=== PATIENT | female | born 2005 | race African-American/Black ===

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

== ENCOUNTER 2024-01-18 13:04 | Emergency (ER) | payer MEDICAID, SELFPAY ==
[2024-01-18 13:08] VITALS: BP 125/77; PULSE 92; RESP 16; TEMP 36.9; O2SAT 99; BMI 21.4
--- NOTE | 2024-01-18 13:29 | ED_ITS ---
HPI - Nausea/Vomiting/Diarrhea 2 General: Chief complaint: Nausea/Vomiting/Diarrhea Stated complaint: vomiting Time Seen by Provider: 01/18/24 13:06 Source: patient Mode of arrival: ambulatory History of Present Illness: 18-year-old female presents emergency ro om with complaints of nausea and vomiting. She states she ate some crawfish 2 days ago that seem to precipitate it. She was seen in urgent care in [place] given IV fluids states she still feels weak has been nauseous and continuing to vomit at times. She reports a fever this morning she denies any dysuria urgency or frequency. No hematochezia melena hematemesis or coffee-ground emesis. MD elicited complaint: nausea and vomiting Onset (ago): day(s) Associated nausea: Yes Associated abdominal pain: Yes Location of pain: Diffuse Severity: mild Quality: cramping Exacerbating factors: none Relieving factors: none Associated symtoms: Reports nausea; Denies altered mental status, anxiety, bloating, change in vision, chest pain, cough, diaphoresis, decreased urine output, dizziness, dysuria, epistaxis, fatigue, fecal incontinence, fevers/chills, headache(s), anorexia, malaise, myalgias, numbness, palpitations, rash, short of breath, syncope, tenesmus, tinnitus or weakness Review of Systems 2 Const: Denies: fatigue, malaise or diaphoresis Eyes: Denies: change in vision ENMT: Denies: tinnitus or epistaxis Card: Denies: chest pain, palpitations or syncope Resp: Denies: dyspnea GI: Reports: nausea; Denies: bloating or fecal incontinence : Denies: dysuria Musc: Denies: neck pain or back pain Skin/Breast: Denies: rash Neuro: Denies: headache(s) or dizziness Psych: Denies: anxiety PFSH ED 2 PFSH: Family History Denies family history of Colon cancer Ovarian cancer Prostate cancer Diabetes Heart disease Hypercholesteremia Breast cancer Hypertension Uterine cancer Thyroid disease Stroke Physical Exam 2 Const: COMMON NORMALS: no acute distress EXAM LIMITATIONS: no altered mental status GENERAL APPEARANCE: cooperative and comfortable O RIENTATION/CONSCIOUSNESS: Yes awake, Yes oriented to person, Yes oriented to place and Yes oriented to time HENMT: COMMON NORMALS: normocephalic, atraumatic and hearing grossly normal bilaterally HEAD & SCALP: normocephalic and atraumatic Resp: COMMON NORMALS: normal respiratory effort, No retractions, No use of accessory muscles and clear to auscultation bilaterally AUSCULTATION: clear to auscultation bilaterally Cardio: COMMON NORMALS: regular rate, regular rhythm and No murmurs present (Cardio) RATE: regular rate RHYTHM: regular rhythm GI: COMMON NORMALS: Soft to palpation and No hepatosplenomegaly present A USCULTATION: Yes normoactive bowel sounds PALPATION: Yes Soft to palpation, No Tenderness to palpation present (GI), No Guarding due to palpation present (GI) and Yes No hepatosplenomegaly present Extremity: COMMON NORMALS: normal to inspection, capillary refill normal, no clubbing, cyanosis or edema, no calf tenderness and no pedal edema Neuro: SENSORIUM/ORIENTATION: Yes oriented to person, Yes oriented to place and Yes oriented to time Skin: COMMON NORMALS: no rashes or lesions noted GENERAL SKIN EXAM: no rashes or lesions noted Course 2 Vital Signs: Vital signs: Vital Signs Temperature 98.5 F 01/18/24 13:08 Pulse Rate 81 01/18/24 14:15 Respiratory Rate 18 01/18/24 13:41 Blood Pressure 121/70 01/18/24 14:15 Pulse Oximetry 99 01/18/24 14:15 Oxygen Delivery Me thod Room Air 01/18/24 14:15 MDM - Nausea/Vomiting/Diarrhea Medical Decision Making Labs and imaging reviewed T. bili and lipase are elevated although suspect this is more related to volume depletion. CT did not show significant inflammation about the pancreas. Patient was given 2 L of fluids she did she does admit to regular use of THC products I think this is complicating her course. She is improved with the fluids and antiemetics discharged home clear liquid diet promethazine as needed follow-up with primary care Medical Records I reviewed the patient's medical records. Lab Data I reviewed the patient's lab results. 01/18/24 13:37 01/18/24 13:37 Radiology Impressions Abdomen/Pelvis CT 01/18/24 13:46 IMPRESSION: No definite pathology. Limited assessment of the colonic wall secondary to nondistention; mild colonic wall thickening cannot be excluded in this setting. Clinical correlation recommended. Laboratory Results WBC 12.28 10^3/uL (4.5-13.0) 01/18/24 13:37 RBC 4.74 10^6/uL (3.85-5.65) 01/18/24 13:37 Hgb 12.80 g/dL (12.4-14.8) 01/18/24 13:37 Hct 39.2 % (36-47) 01/18/24 13:37 MCV 82.7 fl (85-98) L 01/18/24 13:37 MCH 27.0 pg (27-33) 01/18/24 13:37 MCHC 32.7 g/dL (30-55) 01/18/24 13:37 RDW 13.8 % (12.1-15.1) 01/18/24 13:37 Plt Count 284 10^3/cmm (157-399) 01/18/24 13:37 MPV 10.6 fL (7.4-10.4) H 01/18/24 13:37 Neut % (Auto) 78.3 % 01/18/24 13:37 Lymph % (Auto) 14.3 % 01/18/24 13:37 [place] % (Auto) 6.8 % 01/18/24 13:37 Eos % (Auto) 0.0 % 01/18/24 13:37 Baso % (Auto) 0.2 % 01/18/24 13:37 Neut # (Auto) 9.62 10^3/uL (1.8-8.0) H 01/18/24 13:37 Lymph # (Auto) 1.8 10^3/uL (1.5-6.5) 01/18/24 13:37 [place] # (Auto) 0.8 10^3/uL (0.2-0.9) 01/18/24 13:37 Eos # (Auto) 0.0 10^3/uL (0.0-0.8) 01/18/24 13:37 Baso # (Auto) 0.0 10^3/uL (0.0-0.1) 01/18/24 13:37 Nucleated RBC % (auto) 0 % 01/18/24 13:37 Nucleated RBCs # 0.0 /100WBC 01/18/24 13:37 Sodium 137 mmol/L (136-145) 01/18/24 13:37 Potassium 3.6 mmol/L (3.5-5.1) 01/18/24 13:37 Chloride 102 mmol/L (98-107) 01/18/24 13:37 Carbon Dioxide 22 mmol/L (22-29) 01/18/24 13:37 Anion Gap 16.6 (5-19) 01/18/24 13:37 BUN 9 mg/dL (6-20) 01/18/24 13:37 Creatinine 0.6 mg/dL (0.5-0.9) 01/18/24 13:37 GFR Calculation 155.8 mL/min (90-130) H 01/18/24 13:37 Glucose 114 mg/dL (65-115) 01/18/24 13:37 Calculated Osmolality 284 mOsm/kg (285-295) L 01/18/24 13:37 Calcium 9.1 mg/dL (8.5-10.5) 01/18/24 13:37 Total Bilirubin 1.3 mg/dL (0.15-1.2) H 01/18/24 13:37 AST 16 U/L (0-32) 01/18/24 13:37 ALT 15 U/L (0-33) 01/18/24 13:37 Alkaline Phosphatase 56 U/L (35-105) 01/18/24 13:37 Total Protein 7.7 g/dL (6.6-8.7) 01/18/24 13:37 Albumin 4.6 g/dL (3.5-5.2) 01/18/24 13:37 Globulin 3.1 g/dL (1.3-4.6) 01/18/24 13:37 Lipase 93 U/L (13-60) H 01/18/24 13:37 Ser , Semi-Qnt < 1.00 mIU/mL 01/18/24 13:37 Urine Color Yellow (Yellow) 01/18/24 14:44 Urine Appearance Hazy (CLEAR) A 01/18/24 14:44 Urine pH 8 (5-7) H 01/18/24 14:44 Ur Specific [place] 1.010 (1.005-1.030) 01/18/24 14:44 Urine Protein Trace (Negative) 01/18/24 14:44 Urine Glucose (UA) 1+ (Normal) H 01/18/24 14:44 Urine Ketones 2+ (Negative) H 01/18/24 14:44 Urine Blood Neg (Negative) 01/18/24 14:44 Urine Nitrate Negative (Negative) 01/18/24 14:44 Urine Bilirubin Neg (Negative) 01/18/24 14:44 Prot Sulfosalicylic Acd Negative (Negative) 01/18/24 14:44 Urine Urobilinogen 4 mg/dL (Negative) H 01/18/24 14:44 Ur Leukocyte Esterase Trace (Negative) H 01/18/24 14:44 Urine RBC 0-4 /hpf (0-2) H 01/18/24 14:44 Urine WBC 0-4 /hpf (0-5) H 01/18/24 14:44 Ur Squamous Epith Cells 15-25 /hpf (0-5) H 01/18/24 14:44 Amorphous Sediment Not Reportable 01/18/24 14:44 Urine Bacteria 1+ /hpf (NONE) H 01/18/24 14:44 Urine Mucus 2+ /hpf 01/18/24 14:44 All radiology interpretation(s) finalized by discharge Discharge Plan Discharge Patient Disposition: Home Clinical Impression: Enteritis Condition: Stable Prescriptions: New promethazine 25 mg tablet 25 mg PO Q6H PRN (Reason: nausea and vomiting) Qty: 20 0RF No Action etonogestrel-ethinyl estradiol [NuvaRing] 0.12-0.015 mg/24 hr ring 1 vag ring vaginal ONCE Qty: 3 4RF Rx Instructions: Place 1 vaginal ring into the vaginal canal once a month. acetaminophen 325 mg capsule 325 mg PO Q4H PRN (Reason: fever or pain) Qty: 60 0RF Discharge Orders: Discharge ED (Routine); Ordered 01/18/24 Ordered By: Leoncio Vasquez Discharge Diet: Clear Liquid Discharge Activity: Increase activity as tolerated Patient Instructions: Opioid Safety, Pain Management Activity Restrictions/Additional Instructions: Thank you for choosing [facility] for your healthcare needs today. Please realize this is an emergency room and that we are providing you with a medical screening exam and this may not be complete and all inclusive of all the testing and or work up that you may need to determine your ailment or severity of your illness. It is very important that you follow up as instructed or that you return to the Emergency Department should you have concerns or if your condition changes or worsens in any way. You are seen today with complaints abdominal pain with persistent nausea and vomiting. CT did not show any acute pathology laboratory studies showed some mild nonspecific variations from normal but nothing that was clinically significant. Your bilirubin and lipase were elevated I suspect these are due to volume depletion. Urine showed some contamination no clear signs of infection. Some of your symptoms may be due to enteritis they may also be due to use of THC products. Recommend clear liquid diet for the next 48 hours avoid the use of THC products you can use promethazine as needed for nausea or vomiting follow-up with your primary care doctor if not improving Coding Level of Care Code ED Rehabilitation Counselor for Erin Reyes
[2024-01-18] MEDS: ondansetron 2 mg/ML SDV 2 mL 4 MG IVP (13:32)
[2024-01-18] MEDS: sodium chloride 0.9% 1,000 ML 999 ML IV ×2 (13:35→15:46)
[2024-01-18 13:41] VITALS: BP 121/70; PULSE 80; RESP 18; O2SAT 99
[2024-01-18 13:46] LABS: Basophils % 0.2 %; Hematocrit 39.2 % (36-47); Lymphocytes # 1.8 10^3/uL (1.5-6.5); Lymphocytes % 14.3 %; Mean Corpuscular HGB Conc 32.7 g/dL (30-55); Mean Corpuscular Volume 82.7 fl (85-98); Mean Platelet Volume 10.6 fL (7.4-10.4); Monocytes # 0.8 10^3/uL (0.2-0.9); Monocytes % 6.8 %; Neutrophils # 9.62 10^3/uL (1.8-8.0); Neutrophils % 78.3 %; Nucleated Red Blood Cells % 0 %; Platelet Count 284 10^3/cmm (157-399); Red Blood Count 4.74 10^6/uL (3.85-5.65); Red Cell Distribution Width 13.8 % (12.1-15.1); White Blood Count 12.28 10^3/uL (4.5-13.0)
--- NOTE | 2024-01-18 13:46 | CTR_ITS ---
PROCEDURE INFORMATION: Exam: CT Abdomen And Pelvis With Contrast Exam date and time: 01/18/2024 2:38 PM Age: 18 years old Clinical indication: Pain; Other: N/v/d; Patient HX: Nvd since Wednesday after eating crawfish; Additional info: Abd pain TECHNIQUE: Imaging protocol: Computed tomography of the abdomen and pelvis with contrast. Radiation optimization: All CT scans at this facility use at least one of these dose optimization techniques: automated exposure control; mA and/or kV adjustment per patient size (includes targeted exams where dose is matched to clinical indication); or iterative reconstruction. Contrast material: OMNI 350; Contrast volume: 100 ml; Contrast route: INTRAVENOUS (IV); COMPARISON: No relevant prior studies available. RADIATION DOSE METRICS: Total DLP (mGy-cm): 341.21 FINDINGS: Lungs: No significant pathology at the imaged lung bases. Liver: No significant liver pathology. Gallbladder and bile ducts: No significant gallbladder pathology. No biliary dilatation. Pancreas: No significant pancreatic pathology. Spleen: No significant splenic pathology. Adrenal glands: No significant adrenal pathology. Kidneys and ureters: No significant renal pathology. Stomach and bowel: Colon is nondistended limiting assessment of the wall. Mild wall thickening of the colon cannot be excluded. Appendix: Appendix within normal limits. Intraperitoneal space: No ascites. Vasculature: No abdominal aortic aneurysm. Lymph nodes: No evidence of lymphadenopathy. Urinary bladder: Urinary bladder is nondistended limiting assessment of the wall. Reproductive: No significant uterine pathology. No significant adnexal pathology. Bones/joints: No significant bony pathology. Soft tissues: Unremarkable. CT/CT abdomen pelvis w con* [id number] IMPRESSION: No definite pathology. Limited assessment of the colonic wall secondary to nondistention; mild colonic wall thickening cannot be excluded in this setting. Clinical correlation recommended.
[2024-01-18 14:15] VITALS: BP 121/70; PULSE 81; O2SAT 99
[2024-01-18 14:18] LABS: HCG Quantitative < 1.00 mIU/mL
[2024-01-18 14:28] LABS: Alanine Aminotransferase 15 U/L (0-33); Albumin Level 4.6 g/dL (3.5-5.2); Alkaline Phosphatase 56 U/L (35-105); Anion Gap 16.6 (5-19); Aspartate Amino Transferase 16 U/L (0-32); Blood Urea Nitrogen 9 mg/dL (6-20); Calcium 9.1 mg/dL (8.5-10.5); Carbon Dioxide 22 mmol/L (22-29); Chloride 102 mmol/L (98-107); Creatinine Clr Calc Pharmacy 132.1327; Globulin 3.1 g/dL (1.3-4.6); Glomerular Filtration Rate 155.8 mL/min (90-130); Glucose 114 mg/dL (65-115); Osmolality Calculated 284 mOsm/kg (285-295); Potassium 3.6 mmol/L (3.5-5.1); Sodium 137 mmol/L (136-145); Total Bilirubin 1.3 mg/dL (0.15-1.2); Total Protein 7.7 g/dL (6.6-8.7)
[2024-01-18 14:30] LABS: Lipase 93 U/L (13-60)
[2024-01-18] MEDS: iohexol 350 mg/mL 500 mL Btl (per mL) IV (14:42)
[2024-01-18 15:11] LABS: Urine Appearance Hazy (CLEAR); Urine Color Yellow (Yellow); pH Urine 8 (5-7)
[2024-01-18 15:12] LABS: Add Urine Microscopic? YES; Bilirubin Urine Neg (Negative); Blood Urine Neg (Negative); Glucose Urine UA 1+ (Normal); Ketones Urine 2+ (Negative); Leukocyte Esterase Urine Trace (Negative); Nitrate Urine Negative (Negative); Protein Urine Trace (Negative); Urobilinogen Urine 4 mg/dL (Negative)
[2024-01-18 15:32] LABS: Add Urine Culture? No; Bacteria Urine 1+ /hpf; Mucus Urine 2+ /hpf; RBC Urine 0-4 /hpf (0-2); Squamous Epithelial Cell Urine 15-25 /hpf (0-5); Sulfosalicylic Acid Urine Negative (Negative); WBC Urine 0-4 /hpf (0-5)
[2024-01-18 17:27] VITALS: BP 121/70; PULSE 81; RESP 18; TEMP 36.9; O2SAT 99
== END 2024-01-18 17:28 | disposition home or self-care (01) ==
PROVIDERS: Physician Assistant; Emergency Provider Family Medicine
DX: K52.9 Noninfective gastroenteritis and colitis, unspecified (principal)
CPT/HCPCS: 74177; 80053; 81001; 83690; 84702; 85025; 96361; 96374; 99285; J2405; J7030; Q9967

== ENCOUNTER 2024-03-20 11:47 | Emergency (ER) | payer MEDICAID, SELFPAY ==
[2024-03-20 11:57] VITALS: BP 155/96; PULSE 81; RESP 18; TEMP 36.9; O2SAT 100; BMI 22.1
--- NOTE | 2024-03-20 13:50 | W.ED.SKABFB ---
HPI - Skin/Abscess/Foreign Bdy General: Chief complaint: Skin/Abscess/Foreign Body Stated complaint: possible bug bite, one on arm one on vaginal regio Time Seen by Provider: 03/20/24 13:49 Source: patient Mode of arrival: ambulatory Limitations: no limitations History of Present Illness: Patient is a 18-year-old female presents to ED today with complaint of a possible insect bite to her left arm and another complaint of gland swelling near her labia. Symptoms began approximately 3 days or so ago. She is describing both areas as painful. No systemic symptoms. MD complaint: insect bite/sting and abscess/boil Onset (ago): day(s) Tetanus up to date: yes Location: LUE and genitals Severity: moderate Pain Consistency: constant Relieving factors: none Exacerbating factors: none Context: none Associated symptoms: Reports no associated symptoms; Deny chills, fever(s) or nausea Treatments prior to arrival: attempted to drain pus at home Review of Systems Const: Denies: fever(s), chills, body aches, fatigue or malaise Card: Denies: chest pain Resp: Denies: dyspnea GI: Denies: abdominal pain, nausea or diarrhea Musc: Denies: neck pain, back pain, extremity pain or joint pain Skin/Breast: Reports: erythema, sores and new lesions Neuro: Denies: headache(s), numbness in extremities, weakness in extremities, sensory changes or dizziness PFS ED PFSH: Family History Denies family history of Colon cancer Ovarian cancer Prostate cancer Diabetes Heart disease Hypercholesteremia Breast cancer Hypertension Uterine cancer Thyroid disease Stroke Physical Exam Const: COMMON NORMALS: no acute distress, average body habitus, patient oriented x3, no limitations, healthy appearing, alert and well nourished : EXTERNAL FEMALE EXAM: Yes other (small pea sized Bartholin's cyst vs abscess) Extremity: COMMON NORMALS: full ROM and capillary refill normal GENERAL: Yes normal exam except as noted EXTREMITY IMAGE (BACK): 1. small bite like lesion/vesicle with mild surrounding erythema consistent with bite/sting Neuro: COMMON NORMALS: patient oriented x3 SENSORIUM/ORIENTATION: Yes alert Skin: NARRATIVE SKIN EXAM: see above Course Vital Signs: Vital signs: Vital Signs Temperature 98.6 F 03/20/24 13:52 Pulse Rate 77 03/20/24 13:52 Respiratory Rate 16 03/20/24 13:52 Blood Pressure 105/66 03/20/24 13:52 Pulse Oximetry 99 03/20/24 13:52 Oxygen Delivery Me thod Room Air 03/20/24 13:52 MDM - Skin/Abscess/Foreign Bdy Medicial Decision Making Patient here for bite/sting to her left arm as well as a small Bartholin cyst vs abscess. Lesion at this time is very small. She is very hesitant and skittish about visualization/inspection/palpation and admittedly does not want incision and drainage performed today. I think based on the size it is reasonable to trial antibiotics. Will place her on Bactrim with strict precautions that if area continues to enlarge or become more painful she will need medical re-evaluation for possible drainage. Medical Records I reviewed the patient's medical records. Lab Data I reviewed the patient's lab results. No radiology studies performed this visit Discharge Plan Discharge Patient Disposition: Home Clinical Impression: Bartholin's gland abscess, Insect bite or sting Condition: Stable Prescriptions: New Bactrim DS 800-160 mg tablet 1 tab PO BID 7 Days Qty: 14 0RF No Action etonogestrel-ethinyl estradiol [NuvaRing] 0.12-0.015 mg/24 hr ring 1 vag ring vaginal ONCE Qty: 3 4RF Rx Instructions: Place 1 vaginal ring into the vaginal canal once a month. promethazine 25 mg tablet 25 mg PO Q6H PRN (Reason: nausea and vomiting) Qty: 20 0RF acetaminophen 325 mg capsule 325 mg PO Q4H PRN (Reason: fever or pain) Qty: 60 0RF Discharge Orders: Discharge ED (Routine); Ordered 03/20/24 Ordered By: Brenda Rincon Referrals: Allyn Kohli, [Primary Care Provider] - Activity Restrictions/Additional Instructions: As we discussed please fill your antibiotics and start them immediately. You need to do warm compresses/sitz baths multiple times daily to help. As we discussed if lesion continues to enlarge or becomes increasingly painful you need to return to the emergency department or follow-up with primary care. Coding Level of Care Code ED Tool Turret Lathe Set Up Operator for Erin Reyes
[2024-03-20 13:52] VITALS: BP 105/66; PULSE 77; RESP 16; TEMP 37; O2SAT 99
== END 2024-03-20 15:45 | disposition home or self-care (01) ==
PROVIDERS: Emergency Provider Physician Assistant; PCP Family Medicine
DX: N75.1 Abscess of Bartholin's gland (principal); S50.361A Insect bite (nonvenomous) of right elbow, initial encounter; W57.XXXA Bitten or stung by nonvenomous insect and other nonvenomous arthropods, initial encounter
CPT/HCPCS: 99283

== ENCOUNTER 2024-03-21 20:54 | Emergency (ER) | payer MEDICAID, SELFPAY ==
[2024-03-21 20:59] VITALS: BP 163/88; PULSE 102; RESP 16; TEMP 36.7; O2SAT 98
[2024-03-21] MEDS: ondansetron 2 mg/ML SDV 2 mL 4 MG IM (21:36)
[2024-03-21] MEDS: sodium chloride 0.9% 1,000 ML 999 ML IV (21:54)
[2024-03-21] MEDS: metoclopramide 5 mg/mL SDV 2 mL 10 MG IVP (21:57)
--- NOTE | 2024-03-21 21:57 | ED_ITS ---
HPI - Nausea/Vomiting/Diarrhea 2 General: Chief complaint: Nausea/Vomiting/Diarrhea Stated complaint: n/v new medicine Time Seen by Provider: 03/21/24 21:03 Source: patient Mode of arrival: ambulatory Limitations: no limitations History of Present Illness: Patient is a 18-year-old female who presents to the emergency department complaining of nausea and vomiting after starting Bactrim couple days ago for Bartholin gland cyst. She notes multiple episodes of vomiting, denies any blood. Denies any diarrhea or other bowel changes. She also states that she smokes marijuana regularly, and has been seen in the emergency department for hyperemesis cannabinoid syndrome. States that she is continue to smoke marijuana regularly. She is noting some diffuse crampy abdominal pain. No fever, chills, or any other symptoms reported this time. MD elicited complaint: nausea, vomiting and abdominal pain Onset (ago): day(s) Associated nausea: Yes Associated abdominal pain: Yes Location of pain: Diffuse Pain consistency: constant Quality: cramping Context: recent antibiotic use and marijuana use Associated symtoms: Reports nausea; Denies chest pain, diaphoresis, dizziness, dysuria, headache(s) or palpitations Review of Systems 2 General: Reports: 10 or more systems reviewed and unremarkable except in HPI and below Const: Denies: fever(s), chills, change in appetite, change in weight or diaphoresis ENMT: Denies: throat pain or hoarseness Card: Denies: chest pain, palpitations or lightheadedness Resp: Denies: dyspnea, productive cough or wheezing GI: Reports: abdominal pain, nausea, vomiting and GI cramping; Denies: diarrhea : Denies: flank pain, difficulty voiding, dysuria, urinary frequency or urinary urgency Musc: Denies: neck pain or back pain Skin/Breast: Denies: rash or new lesions Neuro: Denies: headache(s) or dizziness PFSH ED 2 PFSH: Family History Denies family history of Colon cancer Ovarian cancer Prostate cancer Diabetes Heart disease Hypercholesteremia Breast cancer Hypertension Uterine cancer Thyroid disease Stroke Physical Exam 2 Const: COMMON NORMALS: average body habitus, patient oriented x3, no limitations, healthy appearing, alert and well nourished GENERAL APPEARANCE: cooperative, in distress (Doubled over in pain) and anxious O RIENTATION/CONSCIOUSNESS: Yes awake HENMT: COMMON NORMALS: normocephalic, atraumatic, hearing grossly normal bilaterally, external ears normal, Normal external nose present, Normal nasal mucous membranes and turbinates present and moist oral mucous membranes HEAD & SCALP: normocephalic and atraumatic NOSE: Normal external nose present and Normal nasal mucous membranes and turbinates present EXTERNAL EAR: Yes external ears normal Eye: COMMON NORMALS: Equal, round and reactive pupils present, EOMs intact bilaterally, conjunctivae normal and normal visual rogers by confrontation C ONJUNCTIVA: Yes conjunctivae normal PUPIL: Yes Equal, round and reactive pupils present Neck/C-Spine: COMMON NORMALS: full ROM, supple, no meningeal signs and no JVD Resp: COMMON NORMALS: normal respiratory effort, No retractions, No use of accessory muscles and clear to auscultation bilaterally AUSCULTATION: clear to auscultation bilaterally, no crackles, no rales, no rhonchi and no wheezes Cardio: COMMON NORMALS: no JVD, regular rate, regular rhythm, S1 normal heart sound present, S2 normal heart sound present, No gallops present (Cardio), No clicks present (Cardio), No murmurs present (Cardio), No rub (Cardio) and Peripheral pulses 2+ throughout RATE: regular rate RHYTHM: regular rhythm HEART SOUNDS: S1 normal heart sound present and S2 normal heart sound present PERIPHERAL PULSES: Peripheral pulses 2+ throughout GI: COMMON NORMALS: Normal to inspection, nondistended, normoactive bowel sounds present, Soft to palpation, No hepatosplenomegaly present and no masses AUSCULTATION: Yes normoactive bowel sounds PALPATION: Yes Soft to palpation, Yes Tenderness to palpation present (GI) (Mild diffuse abdominal tenderness to palpation), No Guarding due to palpation present (GI), No Rigid due to palpation and Yes No hepatosplenomegaly present RECTAL EXAM: deferred : COMMON NORMALS: Yes no CVA tenderness BLADDER/KIDNEY EXAM: Yes no CVA tenderness Back/Pelvis: COMMON NORMALS: no CVA tenderness Extremity: COMMON NORMALS: normal to inspection and full ROM Neuro: COMMON NORMALS: patient oriented x3, moves all extremities, no focal motor deficits and no sensory deficits noted SENSORIUM/ORIENTATION: Yes alert MENINGEAL SIGNS: Yes no meningeal signs Psych: COMMON NORMALS: mental status grossly normal, cooperative and speech normal SPEECH: Yes normal speech Skin: COMMON NORMALS: no rashes or lesions noted GENERAL SKIN EXAM: no rashes or lesions noted Course 2 Vital Signs: Vital signs: Vital Signs Temperature 98.0 F 03/21/24 20:59 Pulse Rate 90 03/21/24 22:30 Respiratory Rate 17 03/21/24 22:03 Blood Pressure 149/93 03/21/24 22:03 Pulse Oximetry 100 03/21/24 22:30 Oxygen Delivery Me thod Room Air 03/21/24 22:30 MDM - Nausea/Vomiting/Diarrhea Medical Decision Making Patient seen here in the emergency department couple days ago where she was diagnosed with a Bartholin's gland cyst and started on Bactrim. Soon after she developed nausea and vomiting, however does have a history of chronic marijuana use and has been seen here in the emergency department separately for hyperemesis cannabinoid syndrome. At this time on examination she does appear uncomfortable as she is doubled over in pain, there is presence of watery emesis in emesis bag. She is given Zofran initially, but states that this does not work so she is also given Reglan and does see improvement upon recheck. Also she is started on fluids. Labs were obtained and did show an elevation in white count, minimally, was a slight dip in potassium that is understandable with the amount of vomiting she has been having. Urinalysis and urine drug screen are still pending at this time, while patient states she is ready to go home and feels much better. I will send prescription for Reglan home for her to take while she continues taking her Bactrim, and strict return precautions are given. She is also informed to increase her fluid intake and try to resist smoking marijuana is much as possible. Lab Data 03/21/24 21:54 03/21/24 21:54 Laboratory Results WBC 12.77 10^3/uL (4.5-13.0) 03/21/24 21:54 RBC 4.40 10^6/uL (3.85-5.65) 03/21/24 21:54 Hgb 12.00 g/dL (12.4-14.8) L 03/21/24 21:54 Hct 37.2 % (36-47) 03/21/24 21:54 MCV 84.5 fl (85-98) L 03/21/24 21:54 MCH 27.3 pg (27-33) 03/21/24 21:54 MCHC 32.3 g/dL (30-55) 03/21/24 21:54 RDW 13.2 % (12.1-15.1) 03/21/24 21:54 Plt Count 286 10^3/cmm (157-399) 03/21/24 21:54 MPV 10.4 fL (7.4-10.4) 03/21/24 21:54 Neut % (Auto) 88.3 % 03/21/24 21:54 Lymph % (Auto) 7.4 % 03/21/24 21:54 [place] % (Auto) 3.8 % 03/21/24 21:54 Eos % (Auto) 0.0 % 03/21/24 21:54 Baso % (Auto) 0.1 % 03/21/24 21:54 Neut # (Auto) 11.28 10^3/uL (1.8-8.0) H 03/21/24 21:54 Lymph # (Auto) 0.9 10^3/uL (1.5-6.5) L 03/21/24 21:54 [place] # (Auto) 0.5 10^3/uL (0.2-0.9) 03/21/24 21:54 Eos # (Auto) 0.0 10^3/uL (0.0-0.8) 03/21/24 21:54 Baso # (Auto) 0.0 10^3/uL (0.0-0.1) 03/21/24 21:54 Nucleated RBC % (auto) 0 % 03/21/24 21:54 Nucleated RBCs # 0.0 /100WBC 03/21/24 21:54 Sodium 135 mmol/L (136-145) L 03/21/24 21:54 Potassium 3.4 mmol/L (3.5-5.1) L 03/21/24 21:54 Chloride 100 mmol/L (98-107) 03/21/24 21:54 Carbon Dioxide 17 mmol/L (22-29) L 03/21/24 21:54 Anion Gap 21.4 (5-19) H 03/21/24 21:54 BUN 13 mg/dL (6-20) 03/21/24 21:54 Creatinine 0.7 mg/dL (0.5-0.9) 03/21/24 21:54 GFR Calculation 130.4 mL/min (90-130) H 03/21/24 21:54 Glucose 146 mg/dL (65-115) H 03/21/24 21:54 Calculated Osmolality 283 mOsm/kg (285-295) L 03/21/24 21:54 Calcium 9.0 mg/dL (8.5-10.5) 03/21/24 21:54 Total Bilirubin 0.6 mg/dL (0.15-1.2) 03/21/24 21:54 AST 15 U/L (0-32) 03/21/24 21:54 ALT 10 U/L (0-33) 03/21/24 21:54 Alkaline Phosphatase 54 U/L (35-105) 03/21/24 21:54 Total Protein 7.6 g/dL (6.6-8.7) 03/21/24 21:54 Albumin 4.2 g/dL (3.5-5.2) 03/21/24 21:54 Globulin 3.4 g/dL (1.3-4.6) 03/21/24 21:54 HCG, Qual Negative (Negative) 03/21/24 22:23 No radiology studies performed this visit Discharge Plan Discharge Patient Disposition: Home Clinical Impression: Nausea and vomiting Qualifiers: Vomiting type: unspecified Qualified Code(s): R11.2 - Nausea with vomiting, unspecified Condition: Stable Prescriptions: New metoclopramide HCl 10 mg tablet 10 mg PO Q6H PRN (Reason: nausea and vomiting) Qty: 24 0RF No Action etonogestrel-ethinyl estradiol [NuvaRing] 0.12-0.015 mg/24 hr ring 1 vag ring vaginal ONCE Qty: 3 4RF Rx Instructions: Place 1 vaginal ring into the vaginal canal once a month. promethazine 25 mg tablet 25 mg PO Q6H PRN (Reason: nausea and vomiting) Qty: 20 0RF Bactrim DS 800-160 mg tablet 1 tab PO BID 7 Days Qty: 14 0RF acetaminophen 325 mg capsule 325 mg PO Q4H PRN (Reason: fever or pain) Qty: 60 0RF Discharge Orders: Discharge ED (Routine); Ordered 03/21/24 Ordered By: Moises Martell Referrals: Allyn Kohli DO [Primary Care Provider] - Discharge Diet: As Directed Discharge Activity: Increase activity as tolerated Patient Instructions: Acute Nausea and Vomiting (ED) Activity Restrictions/Additional Instructions: Continue taking your Bactrim at home as prescribed. Also take Reglan as prescribed for nausea and vomiting. Drink plenty of fluids. Try to refrain from smoking cannabis as much as possible. Please return with any new or concerning symptoms may have. You may also follow-up with primary care as needed. Coding Level of Care Code ED [employer] for Erin Reyes
[2024-03-21 21:59] LABS: Basophils % 0.1 %; Hematocrit 37.2 % (36-47); Lymphocytes # 0.9 10^3/uL (1.5-6.5); Lymphocytes % 7.4 %; Mean Corpuscular HGB Conc 32.3 g/dL (30-55); Mean Corpuscular Hemoglobin 27.3 pg (27-33); Mean Corpuscular Volume 84.5 fl (85-98); Mean Platelet Volume 10.4 fL (7.4-10.4); Monocytes # 0.5 10^3/uL (0.2-0.9); Monocytes % 3.8 %; Neutrophils # 11.28 10^3/uL (1.8-8.0); Neutrophils % 88.3 %; Nucleated Red Blood Cells % 0 %; Platelet Count 286 10^3/cmm (157-399); Red Cell Distribution Width 13.2 % (12.1-15.1); White Blood Count 12.77 10^3/uL (4.5-13.0)
[2024-03-21 22:03] VITALS: BP 149/93; PULSE 94; RESP 17; O2SAT 97
--- NOTE | 2024-03-21 22:03 | PC.NURSE ---
pt states she can't urinate, prince notified and order iv fluids, to collect when pt can urinate with fluids going.
[2024-03-21 22:21] LABS: Alanine Aminotransferase 10 U/L (0-33); Albumin Level 4.2 g/dL (3.5-5.2); Alkaline Phosphatase 54 U/L (35-105); Aspartate Amino Transferase 15 U/L (0-32); Blood Urea Nitrogen 13 mg/dL (6-20); Carbon Dioxide 17 mmol/L (22-29); Chloride 100 mmol/L (98-107); Creatinine Clr Calc Pharmacy 110.4405; Globulin 3.4 g/dL (1.3-4.6); Glomerular Filtration Rate 130.4 mL/min (90-130); Glucose 146 mg/dL (65-115); Osmolality Calculated 283 mOsm/kg (285-295); Sodium 135 mmol/L (136-145); Total Bilirubin 0.6 mg/dL (0.15-1.2); Total Protein 7.6 g/dL (6.6-8.7)
[2024-03-21 22:25] LABS: Anion Gap 21.4 (5-19); Potassium 3.4 mmol/L (3.5-5.1)
[2024-03-21 22:30] VITALS: PULSE 90; O2SAT 100
[2024-03-21 22:42] LABS: HCG, Serum Qual Negative (Negative)
[2024-03-21 23:03] LABS: Amphetamines Screen Urine Negative (Negative); Barbiturates Screen Urine Negative (Negative); Benzodiazepines Screen Urine Positive (Negative); Cocaine Screen Urine Negative (Negative); Opiate Screen Urine Negative (Negative); PCP Screen Urine Negative (Negative); THC Screen Urine Positive (Negative)
[2024-03-21 23:13] VITALS: BP 170/67; PULSE 87; RESP 16; O2SAT 98
[2024-03-21 23:13] LABS: Add Urine Microscopic? YES; Bilirubin Urine Neg (Negative); Blood Urine 2+ (Negative); Glucose Urine UA Trace (Normal); Ketones Urine 3+ (Negative); Leukocyte Esterase Urine Negative (Negative); Nitrate Urine Negative (Negative); Protein Urine Trace (Negative); Urine Appearance Slightly Cloudy (CLEAR); Urine Color Yellow (Yellow); Urobilinogen Urine Neg (Negative); pH Urine 6 (5-7)
[2024-03-21 23:14] LABS: Add Urine Culture? No; Bacteria Urine 1+ /hpf; Mucus Urine 3+ /hpf; RBC Urine 0-4 /hpf (0-2); Squamous Epithelial Cell Urine 15-25 /hpf (0-5); WBC Urine 0-4 /hpf (0-5)
== END 2024-03-21 23:14 | disposition home or self-care (01) ==
PROVIDERS: Emergency Provider Physician Assistant; PCP Family Medicine
DX: R11.2 Nausea with vomiting, unspecified (principal); N75.0 Cyst of Bartholin's gland; E11.9 Type 2 diabetes mellitus without complications; I10 Essential (primary) hypertension; E78.00 Pure hypercholesterolemia, unspecified; Z79.899 Other long term (current) drug therapy; Z86.73 Personal history of transient ischemic attack (TIA), and cerebral infarction without residual deficits
CPT/HCPCS: 80053; 80306; 81001; 84703; 85025; 96372; 96374; 99284; J2405; J2765; J7030